=== PATIENT | male | born 1940 | race Caucasian/White ===

== ENCOUNTER 2022-06-27 07:53 | Inpatient (IN) | payer MEDICARE ==
[2022-06-27 09:15] LABS: Hemoglobin 13.2 g/dL (14.0-18.0); Mean Corpuscular HGB CONC 33.1 g/dL (32.0-36.0); Mean Platelet Volume 8.9 fL (7.4-10.4); Platelet Count 162 thou/uL (130-400); RBC Distribution Width 12.2 % (11.5-14.5); Red Blood Cell (RBC) Count 3.87 mill/uL (4.70-6.10); White Blood Cell (WBC) Count 19.7 thou/uL (4.8-10.8)
[2022-06-27 09:28] LABS: SARS-CoV-2 NAA Rapid Test Not Detected (NotDetected)
[2022-06-27 09:30] LABS: ALT (SGPT) 23 U/L (8-55); AST (SGOT) 35 U/L (5-34); Albumin 3.8 g/dL (3.4-4.8); Alkaline Phosphatase 83 U/L (40-110); Anion Gap 19 mmol/L (10-20); BUN (Urea Nitrogen) 19 mg/dL (8.4-25.7); Bilirubin, Total 2.8 mg/dL (0.2-1.2); Calc. Creatinine Clearance 0 mL/min (70-130); Calcium 9.7 mg/dL (7.8-10.44); Carbon Dioxide 22 mmol/L (23-31); Chloride 97 mmol/L (98-107); Estimated GFR 57; Globulin 4.1 g/dL (2.4-3.5); Glucose 146 mg/dL (83-110); Potassium 4.2 mmol/L (3.5-5.1); Protein, Total 7.9 g/dL (5.8-8.1); Sodium 134 mmol/L (136-145)
[2022-06-27] MEDS ORDERED: cefTRIAXone\\ROCEPHIN 2 GM VIAL ONE (09:32)
[2022-06-27] MEDS ORDERED: Azithromycin 500 MG VIAL ONE (09:32)
[2022-06-27 09:33] LABS: Band 19 % (5-11); Lymphocytes 9 % (21-51); MDiff Complete? YES; Monocytes 9 % (0-10); Neutrophil 63 % (42-75); Platelet Morphology Comment Appears Adequate; Polychromasia SLIGHT = 2-3 cells (100X) (0-2/hpf)
[2022-06-27] MEDS ORDERED: Dextrose 50% Abboject 50 ML SYRINGE SLOW IVP PRN (12:37)
[2022-06-27] MEDS ORDERED: Dextrose 5% in Water 1,000 ML IV PRN (12:37)
[2022-06-27] MEDS ORDERED: Polyethylene Glycol 3350 17 GM Packet PO PRN (12:40)
[2022-06-27] MEDS ORDERED: Acetaminophen 325 MG TAB PO PRN (12:43)
[2022-06-27] MEDS ORDERED: Ondansetron ODT 4 MG TAB PO PRN (12:43)
[2022-06-27 13:13] LABS: Bilirubin Negative (Negative); Blood, Urine Trace (Negative); Clarity Clear (Clear); Glucose, Urine (Dipstick) Normal (Negative); Ketone, Urine Negative (Negative); Leukocyte Negative Leu/uL (Negative); Nitrite Negative (Negative); Protein, Urine (Dipstick) 50 mg/dL (Neg-Trace); RBC/HPF 0-3 HPF (0-3); Specific Gravity, Urine 1.023 (1.002-1.036); Squamous Epithelial 0-3 HPF (0-3); Urobilinogen Normal mg/dL (Less than 2); WBC/HPF 0-3 HPF (0-3)
[2022-06-27 13:13] LABS: Lactic Acid 5.4 mmol/L (0.5-2.2)
[2022-06-27 13:17] LABS: Bacteria/HPF 1+ HPF (None Seen)
[2022-06-27] MEDS ORDERED: Sodium Chloride 0.9% 1,000 ML IV SCH ×2 (13:30→14:09)
[2022-06-27] MEDS ORDERED: Ondansetron PF 4 MG/2 ML Vial ONE (13:50)
[2022-06-27] MEDS ORDERED: Albuterol Sulfate 2.5 mg/3 ml Neb NEB PRN (15:00)
[2022-06-27 15:17] VITALS: BMI 24.3
[2022-06-27] MEDS: Sodium Chloride 0.9% 1,000 ML IV SCH ×2 (15:35→17:59)
[2022-06-27] MEDS: HumaLOG 300 UNITS/3 ML VIAL SC PRN ×2 (16:54→20:51)
[2022-06-27 17:24] LABS: Bacteria/HPF None Seen HPF (None Seen); Bilirubin Negative (Negative); Blood, Urine Trace (Negative); Clarity Clear (Clear); Glucose, Urine (Dipstick) Normal (Negative); Ketone, Urine Negative (Negative); Leukocyte Negative Leu/uL (Negative); Nitrite Negative (Negative); Protein, Urine (Dipstick) 50 mg/dL (Neg-Trace); RBC/HPF 0-3 HPF (0-3); Specific Gravity, Urine 1.022 (1.002-1.036); Squamous Epithelial None Seen HPF (0-3); Urobilinogen Normal mg/dL (Less than 2); WBC/HPF 0-3 HPF (0-3); pH, Urine 5.5 (5.0-9.0)
[2022-06-27 17:27] LABS: Urine Culture Reflex No No
[2022-06-27 17:45] LABS: Legionella Urinary Ag Negative (Negative); Strep pneumo Urine Ag NEGATIVE (NEGATIVE)
[2022-06-27] MEDS: Atorvastatin Calcium 40 MG TAB PO SCH (20:10)
[2022-06-27] MEDS: Docusate 100 MG CAP PO SCH (20:11)
[2022-06-27 20:19] LABS: Lactic Acid 2.9 mmol/L (0.5-2.2)
[2022-06-27] MEDS: Latanoprost 0.005% Ophth Soln 2.5 ml Bottle EA EYE SCH (20:35)
[2022-06-28] MEDS ORDERED: Sodium Chloride 0.9% 500 ML IV SCH ×2 (00:45→01:45)
[2022-06-28] MEDS ORDERED: Sodium Chloride 0.9% 1,000 ML IV SCH (03:15)
[2022-06-28] MEDS: Levothyroxine Sodium 75 MCG TAB PO SCH (06:20)
[2022-06-28 07:07] LABS: ALT (SGPT) 19 U/L (8-55); AST (SGOT) 43 U/L (5-34); Albumin 2.9 g/dL (3.4-4.8); Alkaline Phosphatase 56 U/L (40-110); Anion Gap 14 mmol/L (10-20); BUN (Urea Nitrogen) 22 mg/dL (8.4-25.7); Calc. Creatinine Clearance 48 mL/min (70-130); Calcium 7.9 mg/dL (7.8-10.44); Carbon Dioxide 21 mmol/L (23-31); Chloride 108 mmol/L (98-107); Estimated GFR 67; Glucose 115 mg/dL (83-110); Potassium 4.2 mmol/L (3.5-5.1); Protein, Total 5.9 g/dL (5.8-8.1); Sodium 139 mmol/L (136-145)
[2022-06-28 07:19] LABS: Free T4 (Free Thyroxine) 0.84 ng/dL (0.70-1.48)
[2022-06-28 08:45] LABS: Band 3 % (5-11); Hemoglobin 10.5 g/dL (14.0-18.0); Lymphocytes 12 % (21-51); MDiff Complete? YES; Mean Corpuscular HGB CONC 32.7 g/dL (32.0-36.0); Mean Corpuscular Hemoglobin 34.1 pg (27.0-31.0); Mean Platelet Volume 8.2 fL (7.4-10.4); Monocytes 10 % (0-10); Neutrophil 75 % (42-75); Platelet Count 150 thou/uL (130-400); Platelet Morphology Comment Appears Adequate; RBC Distribution Width 12.4 % (11.5-14.5); RBC Morphology Normal; Red Blood Cell (RBC) Count 3.08 mill/uL (4.70-6.10)
[2022-06-28] MEDS: Enoxaparin Sodium 40 MG/0.4 ML SYRINGE SC SCH (08:49)
[2022-06-28] MEDS: Azithromycin 250 MG TAB PO SCH (08:49)
[2022-06-28] MEDS: Aspirin 81 mg Enteric Coated Tablet PO SCH (08:49)
[2022-06-28] MEDS: Brimonidine Tartrate 0.2% Ophth Soln 5 ml Bottle EA EYE SCH (08:50)
[2022-06-28] MEDS: Docusate 100 MG CAP PO SCH ×2 (08:50→21:08)
[2022-06-28] MEDS: Timolol 0.5% Ophth Soln 5 ml Bottle EA EYE SCH (08:50)
[2022-06-28] MEDS: cefTRIAXone\\ROCEPHIN 2 GM in Sodium Chloride 0.9% 100 ML IVPB SCH (09:01)
[2022-06-28] MEDS: guaiFENesin 200 MG TAB PO PRN ×3 (10:07→21:07)
[2022-06-28] MEDS ORDERED: Lisinopril 5 MG TAB PO SCH (21:00)
[2022-06-28] MEDS: Atorvastatin Calcium 40 MG TAB PO SCH (21:07)
[2022-06-28] MEDS: Latanoprost 0.005% Ophth Soln 2.5 ml Bottle EA EYE SCH (21:07)
[2022-06-29] MEDS: Levothyroxine Sodium 75 MCG TAB PO SCH (05:27)
[2022-06-29 06:35] LABS: #Eosinphils 0.1 thou/uL (0.0-0.7); #Lymphocytes 1.8 thou/uL (1.20-3.40); #Monocytes 0.9 thou/uL (0.11-0.59); #Neutrophils 10.3 thou/uL (1.40-6.50); %Basophils 0.1 % (0.0-1.0); %Eosinophils 0.5 % (0.0-10.0); %Lymphocytes 13.9 % (21.0-51.0); %Neutrophils 78.5 % (42.0-75.0); Hemoglobin 10.6 g/dL (14.0-18.0); Mean Corpuscular Hemoglobin 34.9 pg (27.0-31.0); Mean Platelet Volume 9.1 fL (7.4-10.4); Platelet Count 157 thou/uL (130-400); RBC Distribution Width 12.2 % (11.5-14.5); Red Blood Cell (RBC) Count 3.04 mill/uL (4.70-6.10); White Blood Cell (WBC) Count 13.1 thou/uL (4.8-10.8)
[2022-06-29 06:54] LABS: ALT (SGPT) 27 U/L (8-55); AST (SGOT) 50 U/L (5-34); Albumin 2.9 g/dL (3.4-4.8); Alkaline Phosphatase 65 U/L (40-110); Anion Gap 14 mmol/L (10-20); BUN (Urea Nitrogen) 20 mg/dL (8.4-25.7); Bilirubin, Total 1.1 mg/dL (0.2-1.2); Calc. Creatinine Clearance 56 mL/min (70-130); Calcium 8.2 mg/dL (7.8-10.44); Carbon Dioxide 21 mmol/L (23-31); Chloride 108 mmol/L (98-107); Estimated GFR 80; Globulin 3.2 g/dL (2.4-3.5); Glucose 126 mg/dL (83-110); Potassium 3.8 mmol/L (3.5-5.1); Protein, Total 6.1 g/dL (5.8-8.1); Sodium 139 mmol/L (136-145)
[2022-06-29] MEDS: Aspirin 81 mg Enteric Coated Tablet PO SCH (09:15)
[2022-06-29] MEDS: Docusate 100 MG CAP PO SCH ×2 (09:15→21:13)
[2022-06-29] MEDS: Enoxaparin Sodium 40 MG/0.4 ML SYRINGE SC SCH (09:15)
[2022-06-29] MEDS: Brimonidine Tartrate 0.2% Ophth Soln 5 ml Bottle EA EYE SCH (10:07)
[2022-06-29] MEDS: Timolol 0.5% Ophth Soln 5 ml Bottle EA EYE SCH (10:08)
[2022-06-29] MEDS: cefTRIAXone\\ROCEPHIN 2 GM in Sodium Chloride 0.9% 100 ML IVPB SCH (10:08)
[2022-06-29] MEDS: Azithromycin 250 MG TAB PO SCH (10:09)
[2022-06-29] MEDS ORDERED: guaiFENesin/DM ER PO SCH (10:30)
[2022-06-29] MEDS ORDERED: Acetaminophen W/ Codeine 5 ML UDCUP PO PRN (11:21)
[2022-06-29] MEDS: Azithromycin 500 MG in Sodium Chloride 0.9% 250 ML 250 ML IVPB SCH (12:21)
[2022-06-29] MEDS: Atorvastatin Calcium 40 MG TAB PO SCH (21:11)
[2022-06-29] MEDS: Lisinopril 5 MG TAB PO SCH (21:12)
[2022-06-29] MEDS: guaiFENesin/DM ER PO SCH (21:12)
[2022-06-29] MEDS: Latanoprost 0.005% Ophth Soln 2.5 ml Bottle EA EYE SCH (21:12)
[2022-06-30] MEDS: Levothyroxine Sodium 75 MCG TAB PO SCH (05:24)
[2022-06-30 06:55] LABS: #Eosinphils 0.1 thou/uL (0.0-0.7); #Lymphocytes 1.9 thou/uL (1.20-3.40); #Neutrophils 6.5 thou/uL (1.40-6.50); %Basophils 0.1 % (0.0-1.0); %Eosinophils 0.7 % (0.0-10.0); %Lymphocytes 20.4 % (21.0-51.0); %Monocytes 10.5 % (0.0-10.0); %Neutrophils 68.4 % (42.0-75.0); Hemoglobin 10.6 g/dL (14.0-18.0); Mean Corpuscular HGB CONC 33.6 g/dL (32.0-36.0); Mean Corpuscular Hemoglobin 34.4 pg (27.0-31.0); Mean Platelet Volume 8.6 fL (7.4-10.4); Platelet Count 182 thou/uL (130-400); RBC Distribution Width 12.2 % (11.5-14.5); Red Blood Cell (RBC) Count 3.09 mill/uL (4.70-6.10); White Blood Cell (WBC) Count 9.5 thou/uL (4.8-10.8)
[2022-06-30 07:15] LABS: ALT (SGPT) 36 U/L (8-55); AST (SGOT) 60 U/L (5-34); Albumin 2.8 g/dL (3.4-4.8); Alkaline Phosphatase 64 U/L (40-110); Anion Gap 15 mmol/L (10-20); BUN (Urea Nitrogen) 16 mg/dL (8.4-25.7); Bilirubin, Total 1.3 mg/dL (0.2-1.2); Calc. Creatinine Clearance 59 mL/min (70-130); Calcium 8.5 mg/dL (7.8-10.44); Carbon Dioxide 21 mmol/L (23-31); Chloride 108 mmol/L (98-107); Estimated GFR 85; Globulin 3.4 g/dL (2.4-3.5); Glucose 149 mg/dL (83-110); Potassium 3.7 mmol/L (3.5-5.1); Protein, Total 6.2 g/dL (5.8-8.1); Sodium 140 mmol/L (136-145)
[2022-06-30] MEDS: Docusate 100 MG CAP PO SCH ×2 (08:25→20:42)
[2022-06-30] MEDS: Enoxaparin Sodium 40 MG/0.4 ML SYRINGE SC SCH (08:25)
[2022-06-30] MEDS: Aspirin 81 mg Enteric Coated Tablet PO SCH (08:25)
[2022-06-30] MEDS: guaiFENesin/DM ER PO SCH ×2 (08:26→20:42)
[2022-06-30] MEDS: cefTRIAXone\\ROCEPHIN 2 GM in Sodium Chloride 0.9% 100 ML IVPB SCH (08:28)
[2022-06-30] MEDS: Brimonidine Tartrate 0.2% Ophth Soln 5 ml Bottle EA EYE SCH (08:32)
[2022-06-30] MEDS: Timolol 0.5% Ophth Soln 5 ml Bottle EA EYE SCH (08:33)
[2022-06-30] MEDS: Azithromycin 500 MG in Sodium Chloride 0.9% 250 ML 250 ML IVPB SCH (10:37)
[2022-06-30] MEDS: HumaLOG 300 UNITS/3 ML VIAL SC PRN ×2 (11:58→20:42)
[2022-06-30] MEDS ORDERED: predniSONE 20 MG TAB PO SCH (12:00)
[2022-06-30] MEDS: Benzonatate 100 MG CAP PO PRN ×2 (12:30→20:43)
[2022-06-30] MEDS: Atorvastatin Calcium 40 MG TAB PO SCH (20:42)
[2022-06-30] MEDS: Lisinopril 5 MG TAB PO SCH (20:43)
[2022-06-30] MEDS: Latanoprost 0.005% Ophth Soln 2.5 ml Bottle EA EYE SCH (20:44)
[2022-07-01] MEDS: Levothyroxine Sodium 75 MCG TAB PO SCH (05:23)
[2022-07-01 06:28] LABS: #Lymphocytes 2.1 thou/uL (1.20-3.40); #Neutrophils 9.5 thou/uL (1.40-6.50); %Eosinophils 0.2 % (0.0-10.0); %Lymphocytes 16.8 % (21.0-51.0); %Monocytes 7.6 % (0.0-10.0); %Neutrophils 75.3 % (42.0-75.0); Hemoglobin 10.8 g/dL (14.0-18.0); Mean Corpuscular HGB CONC 33.2 g/dL (32.0-36.0); Mean Corpuscular Hemoglobin 34.1 pg (27.0-31.0); Mean Platelet Volume 8.7 fL (7.4-10.4); Platelet Count 214 thou/uL (130-400); RBC Distribution Width 12.1 % (11.5-14.5); Red Blood Cell (RBC) Count 3.17 mill/uL (4.70-6.10); White Blood Cell (WBC) Count 12.6 thou/uL (4.8-10.8)
[2022-07-01 06:50] LABS: ALT (SGPT) 69 U/L (8-55); AST (SGOT) 89 U/L (5-34); Albumin 2.9 g/dL (3.4-4.8); Alkaline Phosphatase 67 U/L (40-110); Anion Gap 14 mmol/L (10-20); BUN (Urea Nitrogen) 17 mg/dL (8.4-25.7); Bilirubin, Total 0.9 mg/dL (0.2-1.2); Calc. Creatinine Clearance 62 mL/min (70-130); Calcium 8.6 mg/dL (7.8-10.44); Carbon Dioxide 21 mmol/L (23-31); Chloride 107 mmol/L (98-107); Estimated GFR 87; Globulin 3.4 g/dL (2.4-3.5); Glucose 135 mg/dL (83-110); Potassium 3.4 mmol/L (3.5-5.1); Protein, Total 6.3 g/dL (5.8-8.1); Sodium 139 mmol/L (136-145)
[2022-07-01] MEDS ORDERED: predniSONE 20 MG TAB PO SCH (08:00)
[2022-07-01] MEDS ORDERED: metFORMIN 500 MG TAB PO SCH (08:00)
[2022-07-01] MEDS: Docusate 100 MG CAP PO SCH ×2 (08:32→19:45)
[2022-07-01] MEDS: Aspirin 81 mg Enteric Coated Tablet PO SCH (08:32)
[2022-07-01] MEDS: guaiFENesin/DM ER PO SCH ×2 (08:33→19:46)
[2022-07-01] MEDS: Enoxaparin Sodium 40 MG/0.4 ML SYRINGE SC SCH (08:33)
[2022-07-01] MEDS: cefTRIAXone\\ROCEPHIN 2 GM in Sodium Chloride 0.9% 100 ML IVPB SCH (08:34)
[2022-07-01] MEDS: Brimonidine Tartrate 0.2% Ophth Soln 5 ml Bottle EA EYE SCH (08:34)
[2022-07-01] MEDS: Timolol 0.5% Ophth Soln 5 ml Bottle EA EYE SCH (08:34)
[2022-07-01] MEDS: Azithromycin 500 MG in Sodium Chloride 0.9% 250 ML 250 ML IVPB SCH (11:52)
[2022-07-01] MEDS ORDERED: Acetaminophen W/ Codeine 5 ML UDCUP PO PRN (12:38)
[2022-07-01] MEDS: HumaLOG 300 UNITS/3 ML VIAL SC PRN (17:19)
[2022-07-01] MEDS: Lisinopril 5 MG TAB PO SCH (19:45)
[2022-07-01] MEDS: Latanoprost 0.005% Ophth Soln 2.5 ml Bottle EA EYE SCH (19:46)
[2022-07-01 19:49] VITALS: BP 117/77
[2022-07-01 20:07] VITALS: TEMP 98.2
== END 2022-07-01 20:50 | DRG 871 ==
LOC: ERS 07:53 → ERHOLD 10:15 → T4-A 14:54
PROVIDERS: ADMIT Family Medicine; ATTEND Family Medicine
DX: A41.89 Other specified sepsis (principal); J18.9 Pneumonia, unspecified organism; E87.2 Acidosis; E87.1 Hypo-osmolality and hyponatremia; I69.354 Hemiplegia and hemiparesis following cerebral infarction affecting left non-dominant side; Z20.822 Contact with and (suspected) exposure to COVID-19; I10 Essential (primary) hypertension; E78.5 Hyperlipidemia, unspecified; E03.9 Hypothyroidism, unspecified; D64.9 Anemia, unspecified; E11.65 Type 2 diabetes mellitus with hyperglycemia; K82.8 Other specified diseases of gallbladder; K59.00 Constipation, unspecified; R74.01 Elevation of levels of liver transaminase levels; Z90.49 Acquired absence of other specified parts of digestive tract; Z98.42 Cataract extraction status, left eye; Z98.41 Cataract extraction status, right eye; Z79.890 Hormone replacement therapy; Z79.84 Long term (current) use of oral hypoglycemic drugs; Z79.899 Other long term (current) drug therapy; Z79.82 Long term (current) use of aspirin; Z81.8 Family history of other mental and behavioral disorders; Z82.49 Family history of ischemic heart disease and other diseases of the circulatory system; Z80.8 Family history of malignant neoplasm of other organs or systems
CPT/HCPCS: 36415; 36416; 71045; 76705; 78227; 80053; 81003; 81015; 83605; 84439; 84443; 84481; 85025; 87040; 87086; 87449; 87899; 93005; 94640; 96365; 96375; A9537; J0456; J0696; J1650; J1815; J2405; J3490; J7030; J7050; J7512; J7620

== ENCOUNTER 2023-03-09 06:32 | Day surgery (SDC) | payer MEDICARE ==
[2023-03-06 13:08] VITALS: BMI 23.3
[2023-03-09] MEDS ORDERED: Lidocaine 1% PF 5 ML VIAL ONE (08:28)
[2023-03-09] MEDS ORDERED: PROPOFOL 200 MG/20 ML VIAL ONE (08:28)
== END 2023-03-09 09:26 | disposition home or self-care (01) ==
LOC: SDC 06:32
PROVIDERS: ATTEND Internal Medicine Gastroenterology
PROC: 0DJ08ZZ Inspection of Upper Intestinal Tract, Via Natural or Artificial Opening Endoscopic (ICD-10-PCS; principal; 2023-03-09)
PROC: 0D717ZZ Dilation of Upper Esophagus, Via Natural or Artificial Opening (ICD-10-PCS; 2023-03-09)
DX: K22.2 Esophageal obstruction (principal); I69.391 Dysphagia following cerebral infarction; R13.12 Dysphagia, oropharyngeal phase; I69.354 Hemiplegia and hemiparesis following cerebral infarction affecting left non-dominant side; E11.9 Type 2 diabetes mellitus without complications; E78.5 Hyperlipidemia, unspecified; E03.9 Hypothyroidism, unspecified; N40.0 Benign prostatic hyperplasia without lower urinary tract symptoms; I10 Essential (primary) hypertension; F03.90 Unspecified dementia, unspecified severity, without behavioral disturbance, psychotic disturbance, mood disturbance, and anxiety; Z79.82 Long term (current) use of aspirin; Z79.84 Long term (current) use of oral hypoglycemic drugs; Z79.890 Hormone replacement therapy; Z79.899 Other long term (current) drug therapy
CPT/HCPCS: J2704